=== PATIENT | female | born 1970 | race Caucasian/White ===

== ENCOUNTER 2021-04-11 11:30 | Inpatient (IN) | payer OTHER, SELFPAY ==
[2021-04-11] VITALS (7 sets, daily range): BP systolic 131–159; BP diastolic 68–82; PULSE 88–110; RESP 16–18; TEMP 36.6–38.5; O2SAT 94–98; BMI 39.4; BMI 39.8
[2021-04-11 12:14] LABS: Bacteria 0 SEEN /hpf (None Seen); Mucous, Urine 0 SEEN /hpf (<or=2+); Red Blood Cells-Urine 0 SEEN /hpf (0-5)
[2021-04-11 12:15] LABS: Color, Urine Yellow (Yellow); Glucose, Dipstick Normal (Normal); Ketone-Dipstick Negative (Negative); Leukocyte Esterase-Dipstick 500 /ul (Negative); Nitrite-Dipstick Negative (Negative); Occult Blood-Urine 250 /ul (Negative); Protein-Dipstick 100 mg/dl (Negative); Specific Gravity, Urine 1.015 (1.002-1.030); Urine Bilirubin Dipstick Negative (Negative); Urine Clarity Sl. Cloudy (Clear); Urine Urobilinogen Normal (Normal)
[2021-04-11 12:16] LABS: Absolute Lymphocyte Count 1.18 X10^3/uL (0.83-4.51); Absolute Neutrophil Count 14.3 X10^3/uL (2.0-7.7); Basophil# 0.06 X10^3/uL; Basophil% 0.4 % (0-1); Eosinophil# 0.03 X10^3/uL; Eosinophils% 0.2 % (0-5); Hematocrit 43.6 % (37-47); Hemoglobin 14.4 g/dL (12.0-15.0); Lymphocyte # 1.18 X10^3/ul (0.83-4.51); Lymphocyte % 7.1 % (19-41); Mean Corpuscular Hgb 28.6 pg (27.0-32.0); Mean Corpuscular Volume 86.7 fL (81-99); Mean Platelet Vol. 9.2 fl (6.2-12.0); Monocyte# 0.99 X10^3/uL; NRBC Flagged by Analyzer 0 % (0-5); Neutrophil # 14.25 X10^3/uL (2.7-7.7); Neutrophil % 85.7 % (47-70); Platelet Count 308 K/mm3 (150-450); RBC Distribution Width CV 13.4 % (11.6-14.6); RBC Distribution Width SD 41.6 fl (35.1-43.9); Red Blood Count 5.03 M/mm3 (4.2-5.4); White Blood Count 16.6 K/mm3 (4.4-11.0)
[2021-04-11 12:21] LABS: Squamous Epithelial Cells - UA 0-5 SEEN /hpf (5-10); White Blood Cells >100 SEEN /hpf (0-5)
--- NOTE | 2021-04-11 12:25 | CT_ITS ---
STUDY: CT ABDOMEN AND PELVIS WITHOUT CONTRAST REASON FOR EXAM: Female, 50 years old. left flank pain RADIATION DOSAGE (If Supplied By Facility): CTDIvol = ( 21.78 ) mGy, DLP = ( 1088.27 ) mGycm TECHNIQUE: Transaxial images were obtained from the dome of the diaphragm to the symphysis pubis without oral contrast, and without intravenous contrast. Sagittal and coronal images were reconstructed. Individualized dose optimization techniques were used for this CT. COMPARISON: None. FINDINGS: The visualized lung bases are unremarkable. The visualized portions of the heart are within normal limits. There is decreased attenuation of the liver consistent with steatosis. Normal gallbladder and extrahepatic biliary system. Normal spleen. Normal pancreas. Normal bilateral adrenal glands. Normal right kidney. 8 mm obstructing stone of the proximal left ureter with moderate hydronephrosis and perinephric edema. Normal visualized stomach. Normal small intestine. Normal colon. The appendix is visualized and appears normal. Normal abdominal aorta. Normal inferior vena cava. Normal retroperitoneum. Normal urinary bladder. Intrauterine device within the uterus. Normal abdominal wall. Normal osseous structures. CT/Abdomen/Pelvis without Cont IMPRESSION: 1. 8 mm obstructing stone of the proximal left ureter with moderate hydronephrosis and perinephric edema. 2. Fatty infiltration of the liver. 3. Intrauterine device. Electronically Signed: Marcos Pittman MD at 13:16 EDT Tel , Service support ,
--- NOTE | 2021-04-11 12:26 | ED.VIS.FEGU ---
HPI HPI - Female History of Present Illness Chief Complaint: Flank Pain Informant: patient Pain Onset: Yesterday Timing: Continuous Quality: Positive for Aching Current Severity: Mild Maximum Severity: Mild Bleeding Issue: Negative for Vaginal bleeding Associated Symptoms Associated Symptoms: Positive for Dysuria; Negative for Frequency, Urgency and Hematuria Narrative Narrative: 50-year-old female history of hypertension and asthma. Diagnosed with a recent UTI on February 26. Initially started on amoxicillin then changed to a different antibiotic and then was on Bactrim for 10 days and her symptoms resolved. She has had recurrent now flank pain and cloudy urine. States she has had fever and chills temperature as high as 1012. No history of kidney stones. She has had nausea. No diarrhea. Prior similar symptoms: Yes Recent Illness/Hospitalization: No PFSH PFSH Medical History Anxiety Asthma HTN (hypertension) Home Medications albuterol sulfate 90 mcg INHALATION Q4H PRN PRN 04/11/21 [History Last Taken Unknown] amlodipine 10 mg PO DAILY 04/11/21 [History Last Taken Unknown] hydrochlorothiazide 25 mg PO DAILY 04/11/21 [History Last Taken Unknown] montelukast 10 mg PO DAILY 04/11/21 [History Last Taken Unknown] Allergy/AdvReac Type Severity Reaction Status Date / Time acetaminophen [From Vicodin] AdvReac Vomiting Verified 04/11/21 11:31 hydrocodone [From Vicodin] AdvReac Vomiting Verified 04/11/21 11:31 Social History Smoking Status: Never smoker ROS ROS ED Review of Systems ROS Unobtainable: Denies due to encephalopathy Constitutional Constitutional ED: Reports chills and fever(s) Eyes Eyes: Denies change in vision ENT ENT ED: Denies ear pain or sore throat Cardiovascular Cardiovascular: Denies chest pain Respiratory/Chest Respiratory/Chest: Denies cough or dyspnea Gastrointestinal Gastrointestinal: Reports vomiting; Denies abdominal pain or diarrhea Genitourinary Genitourinary ED: Reports dysuria Musculoskeletal Musculoskeletal: Denies arthralgias or myalgias Integumentary Denies abscess or rash Neurologic Neurologic: Denies headache(s) Psychiatric Psychiatric: Denies depression Endocrine Endocrinology: Denies polyuria Hematologic/Lymphatic Hematologic/Lymphatic: Denies easy bruising Allergic/Immunologic Allergic/Immunologic ED: Denies urticaria EXAM Physical Exam Narrative Exam Narrative: Treatment no acute distress vital signs stable afebrile. Does not look septic or toxic. HEENT exam unremarkable. Lungs are clear. Heart regular rhythm. Abdomen soft nontender normal bowel sounds no peritoneal signs. Currently she has no reproducible CVA tenderness. Patient moving all 4 extremities. No edema. Neurologically she is awake and alert. Const Vital Signs: 04/11/21 11:31 04/11/21 12:01 Temperature 98.4 F Temperature Source Temporal Pulse Rate 104 H Respiratory Rate 16 Respiratory Effort Normal Non-Labored Respiratory Pattern Normal Blood Pressure 159/82 H Blood Pressure Mean 107 Pulse Ox 94 Oxygen Delivery Method Room Air Positive well nourished and well developed; Negative for obese, cachectic, contractures or unkempt General Appearance ED: well developed and NAD; Negative for unkempt, cachectic, contractures or pallor Nutritional Appearance: Negative for cachectic or obese HEENT Reports moist mucous membranes Negative for trauma or tenderness Eyes PERRL and EOMs intact bilaterally Neck no lymphadenopathy, supple and no JVD Thyroid: Negative for tender Chest Wall inspection of chest normal and palpation of chest normal Resp normal respiratory effort and clear to auscultation bilaterally Auscultation: Negative for rales, rhonchi or wheezes Cardio regular rate, regular rhythm, S1 normal heart sound, no murmurs and no JVD Rhythm: Negative for abnormal rhythm GI normal to inspection, nondistended, normoactive bowel sounds, non-tender, non-distended and no masses Auscultation: normoactive bowel sounds Palpation: Negative for tender, guarding or rigid no CVA tenderness Back/Spine no CVA tenderness Extremity normal to inspection and full ROM General Extremety ED: Negative for edema or tenderness General Extremity: Negative for edema Neuro oriented x3 Sensorium / Orientation: alert, oriented to person, oriented to place and oriented to time Motor Exam: strength 5/5 throughout Psych mental status grossly normal Appearance: Negative for unkempt Attitude: No agitated Mood & Affect: Negative for depressed or tearful Skin no rashes or lesions noted and no wounds General Skin Exam: Negative for jaundice or pallor MDM MDM MDM Narrative Medical decision making narrative: Middle-aged female with UTI symptoms possibly pyelonephritis rule out stone. Labs and a CT are being obtained. Repeat exam patient is doing well at 1:25 PM. She and I discussed her obstructing 8 mm proximal left ureteral stone and a possible UTI. She will be started on IV Rocephin I will speak to the hospitalist about admission and urology consultation tomorrow. 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 Lab Data Attestation: I reviewed the patient's lab results. Lab results narrative: CBC shows elevated white count of 16.6 thousand. Hemoglobin of 14. BMP potassium 3.4. Normal gap of 7 normal creatinine. Glucose 149. Urinalysis shows 250 occult blood negative nitrates greater than 100 WBCs no epithelial cells no blood no bacteria. Labs: Laboratory Results - last 24 hr 04/11/21 04/11/21 04/11/21 11:55 11:55 11:55 WBC 16.6 H RBC 5.03 Hgb 14.4 Hct 43.6 MCV 86.7 MCH 28.6 MCHC 33.0 RDW Std Deviation 41.6 RDW Coeff of Anahy 13.4 Plt Count 308 MPV 9.2 Immature Gran % (Auto) 0.600 Neut % (Auto) 85.7 H Lymph % (Auto) 7.1 L [place] % (Auto) 6.0 Eos % (Auto) 0.2 Baso % (Auto) 0.4 Absolute Neuts (auto) 14.3 H Absolute Lymphs (auto) 1.18 Nucleated RBC % 0 Sodium 137 Potassium 3.4 L Chloride 102 Carbon Dioxide 28.0 Anion Gap 7 BUN 12 Creatinine 0.75 Estim Creat Clear Calc 78.35 Est GFR (MDRD) Af Amer 105 Est GFR (MDRD) Non-Af 87 BUN/Creatinine Ratio 15.9 Glucose 149 H Calcium 9.1 Urine Color Yellow Urine Clarity Sl. Cloudy Urine pH 8.0 Ur Specific [place] 1.015 Urine Protein 100 H Urine Glucose (UA) Normal Urine Ketones Negative Urine Occult Blood 250 H Urine Nitrite Negative Urine Bilirubin Negative Urine Urobilinogen Normal Ur Leukocyte Esterase 500 H Urine RBC 0 SEEN Urine WBC >100 SEEN Ur Squamous Epith Cells 0-5 SEEN Urine Bacteria 0 SEEN Urine Mucus 0 SEEN Radiography Diagnostic Testing: Radiology Impression Abdomen/Pelvis CT 04/11/21 12:25 IMPRESSION: 1. 8 mm obstructing stone of the proximal left ureter with moderate hydronephrosis and perinephric edema. 2. Fatty infiltration of the liver. 3. Intrauterine device. Electronically Signed: Marcos Pittman MD at 13:16 EDT Tel , Service support , Discharge Plan Triage Chief Complaint: Flank Pain ED Provider: Jamar Adkins Dx/Rx/DC Orders Clinical Impression: Kidney stone on left side, Acute unilateral obstructive uropathy, UTI (urinary tract infection) Prescriptions: No Action amlodipine 10 mg tablet 10 mg PO DAILY RF: 0 montelukast 10 mg tablet 10 mg PO DAILY RF: 0 hydrochlorothiazide 25 mg tablet 25 mg PO DAILY RF: 0 albuterol sulfate 90 mcg/actuation HFA aerosol inhaler 90 mcg INHALATION Q4H PRN PRN (Reason: Wheezing) RF: 0 Primary Care Provider: Emily Pink Referrals: Emily Pink MD [Primary Care Provider] -
[2021-04-11 12:28] LABS: Anion Gap 7 (5-15); BUN 12 mg/dL (7-18); BUN/Creat Ratio 15.9 RATIO (10-20); Calcium,Total 9.1 mg/dL (8.5-10.1); Chloride 102 mmol/L (98-107); Creatinine, Serum 0.75 mg/dL (0.55-1.02); EST Glomerular Filtration Rate 87 mL/min (>60); Est Glom Filt Rate - Afr Amer 105 mL/min (>60); Estimated Creatinine Clearance 78.35 ml/min; Glucose 149 mg/dL (74-106); Potassium 3.4 mmol/L (3.5-5.1); Sodium Level 137 mmol/L (136-145)
[2021-04-11] MEDS: Ceftriaxone 1 GM/50 ML BAG IV (13:44)
--- NOTE | 2021-04-11 15:07 | HP.PCM.HOS_ITS ---
Documented by User: Esperanza Boyd NP, CORPORATE COUNSELOR-C 04/11/21 15:19 HPI - General General Date of Admission: 04/11/21 HPI Narrative BECKY LEBRON, is a 50 F who presents to the emergency room due to a fever, nausea, flank pain. Patient reports she has had urinary symptoms and intermittent treatment for UTI over the past 6 weeks. She states she has had urine cultures by her primary care provider however no abdominal imaging. She has been on Keflex, nitrofurantoin, Bactrim with recurrence of symptoms. She states last Monday she began having nausea. She reports her symptoms have worsened since that time and fever has been worse since Monday. She reports m ild left flank pain. She reports intermittent urinary symptoms over the past several weeks. She denies history of recurrent UTI, denies history of kidney stone. She is a past medical history of hypertension, seasonal allergies and asthma. [facility] Medical History (Updated 04/11/21 @ 14:50 by Lacey Schaefer) Anxiety Asthma HTN (hypertension) Kidney stones Home Medications albuterol sulfate 90 mcg INHALATION Q4H PRN PRN 04/11/21 [History Last Taken Unknown] amlodipine 10 mg PO DAILY 04/11/21 [History Last Taken Unknown] hydrochlorothiazide 25 mg PO DAILY 04/11/21 [History Last Taken Unknown] montelukast 10 mg PO DAILY 04/11/21 [History Last Taken Unknown] Allergy/AdvReac Type Severity Reaction Status Date / Time acetaminophen [From Vicodin] AdvReac Vomiting Verified 04/11/21 11:31 hydrocodone [From Vicodin] AdvReac Vomiting Verified 04/11/21 11:31 Family History (Updated 04/11/21 @ 15:13 by Esperanza Boyd CORPORATE COUNSELOR, CORPORATE COUNSELOR-C) Mother Diabetes Father CAD (coronary artery disease) COPD (chronic obstructive pulmonary disease) Surgical History no surgical history no surgical history Social History (Updated 04/11/21 @ 15:14 by Esperanza Boyd NP, CORPORATE COUNSELOR-C) household members: spouse Smoking Status: Never smoker alcohol intake: never substance use type: does not use ROS Constitutional Constitutional: Reports fever(s); Denies change in weight, chills, fatigue or weakness Cardiovascular Cardiovascular: Denies chest pain, edema, lightheadedness, palpitations or syncope Respiratory/Chest Respiratory/Chest: Denies cough, dyspnea, productive cough, shortness of breath at rest, shortness of breath with exertion or wheezing Gastrointestinal Gastrointestinal: Reports nausea; Denies abdominal pain, constipation, diarrhea or vomiting Genitourinary Genitourinary: Reports dysuria and urinary frequency; Denies burning urination, difficulty urinating, hematuria, urinary incontinence or urinary urgency Musculoskeletal Musculoskeletal: Reports other Details: Left flank pain ; Denies back pain, joint pain or muscle weakness Integumentary Integumentary: Denies erythema, lesions, rash or wounds Neurologic Neurologic: Denies abnormal speech, confusion, dizziness, focal weakness, numbness, paresthesias, seizure-like activity or syncope Psychiatric Psychiatric: Denies anxiety or depression Hematologic/Lymphatic Hematologic/Lymphatic: Denies anemia, easy bleeding or easy bruising Allergic/Immunologic Allergic/Immunologic: Denies hives or asthma Vital Signs Vital Signs Vital Signs: 04/11/21 11:31 04/11/21 12:01 04/11/21 14:06 Temperature 98.4 F 98 F Temperature Source Temporal Temporal Pulse Rate 104 H 90 Respiratory Rate 16 16 Respiratory Effort Normal Non-Labored Respiratory Depth Respiratory Pattern Normal Blood Pressure 159/82 H 154/78 H Blood Pressure Mean 107 103 Blood Pressure Source Blood Pressure Position Blood Pressure Location Pulse Ox 94 96 Oxygen Delivery Method Room Air Room Air 04/11/21 14:53 04/11/21 14:55 Temperature 99.6 F H Temperature Source Oral Pulse Rate 88 Respiratory Rate 16 Respiratory Effort Normal Respiratory Depth Normal Respiratory Pattern Normal Blood Pressure 158/68 H Blood Pressure Mean 98 Blood Pressure Source Monitor Blood Pressure Position Semi-Fowlers Blood Pressure Location Right Arm Pulse Ox 98 Oxygen Delivery Method Room Air Room Air Weight Weight: 232 lb Body Mass Index (BMI) 39.8 Physical Exam Const alert, oriented x3 and no apparent distress Orientation / Consciousness: awake, oriented to person, oriented to place and oriented to time HEENT normocephalic and moist oral mucous membranes Eyes PERRL, EOMs intact bilaterally and conjunctivae normal Neck no lymphadenopathy Resp normal respiratory effort and clear to auscultation bilaterally Cardio regular rate, regular rhythm and no murmurs Peripheral Pulses: pulses 2+ throughout GI normal to inspection, nondistended, normoactive bowel sounds, non-tender and non-distended Extremity normal to inspection Skin no rashes or lesions noted Lesions: no lesions Rashes: no rashes Trauma: no lacerations or abrasions Neuro CN's II-XII intact bilaterally, no focal motor deficits, no sensory deficits noted and deep tendon reflexes 2+ bilaterally Psych mental status grossly normal and affect normal Results Lab / Micro Data Result Diagrams: 04/11/21 11:55 04/11/21 11:55 Labs: Laboratory Results - last 24 hr 04/11/21 11:55: WBC 16.6 H, RBC 5.03, Hgb 14.4, Hct 43.6, MCV 86.7, MCH 28.6, MCHC 33.0, RDW Std Deviation 41.6, RDW Coeff of Anahy 13.4, Plt Count 308, MPV 9.2, Immature Gran % (Auto) 0.600, Neut % (Auto) 85.7 H, Lymph % (Auto) 7.1 L, [place] % (Auto) 6.0, Eos % (Auto) 0.2, Baso % (Auto) 0.4, Absolute Neuts (auto) 14.3 H, Absolute Lymphs (auto) 1.18, Nucleated RBC % 0 04/11/21 11:55: Sodium 137, Potassium 3.4 L, Chloride 102, Carbon Dioxide 28.0, Anion Gap 7, BUN 12, Creatinine 0.75, Estim Creat Clear Calc 78.35, Est GFR (MDRD) Af Amer 105, Est GFR (MDRD) Non-Af 87, BUN/Creatinine Ratio 15.9, Glucose 149 H, Calcium 9.1 04/11/21 11:55: Urine Color Yellow, Urine Clarity Sl. Cloudy, Urine pH 8.0, Ur Specific [place] 1.015, Urine Protein 100 H, Urine Glucose (UA) Normal, Urine Ketones Negative, Urine Occult Blood 250 H, Urine Nitrite Negative, Urine Bilirubin Negative, Urine Urobilinogen Normal, Ur Leukocyte Esterase 500 H, Urine RBC 0 SEEN, Urine WBC >100 SEEN, Ur Squamous Epith Cells 0-5 SEEN, Urine Bacteria 0 SEEN, Urine Mucus 0 SEEN Radiology Impression Abdomen/Pelvis CT 04/11/21 12:25 IMPRESSION: 1. 8 mm obstructing stone of the proximal left ureter with moderate hydronephrosis and perinephric edema. 2. Fatty infiltration of the liver. 3. Intrauterine device. Electronically Signed: Marcos Pittman MD at 13:16 EDT Tel , Service support , Assessment & Plan Assessment/Plan (1) UTI (urinary tract infection): (2) Kidney stone on left side: PLAN: 1. Acute complicated UTI-repeat urine culture. IV Rocephin. 2. Obstructing 8 mm proximal left ureteral stone with moderate hydronephrosis and perinephric edema-urology consult. IV fluids. As needed pain regimen. 3. Elevated glucose-check hemoglobin A1c. 4. Hypertension-stable, continue amlodipine, hydrochlorothiazide. 5. Chronic intermittent asthma-no exacerbation. DVT prophylaxis- Low risk, not indicated This patient was seen by Esperanza Boyd NP-C under the supervision of Dr. Tee Documented by User: Dr. Verito Tee MD 04/11/21 17:22 HPI - General General Date of Admission: 04/11/21 [facility] Medical History (Updated 04/11/21 @ 14:50 by Lacey Schaefer) Anxiety Asthma HTN (hypertension) Kidney stones Home Medications albuterol sulfate 90 mcg INHALATION Q4H PRN PRN 04/11/21 [History Last Taken Unknown] amlodipine 10 mg PO DAILY 04/11/21 [History Last Taken Unknown] hydrochlorothiazide 25 mg PO DAILY 04/11/21 [History Last Taken Unknown] montelukast 10 mg PO DAILY 04/11/21 [History Last Taken Unknown] Allergy/AdvReac Type Severity Reaction Status Date / Time acetaminophen [From Vicodin] AdvReac Vomiting Verified 04/11/21 11:31 hydrocodone [From Vicodin] AdvReac Vomiting Verified 04/11/21 11:31 Family History (Updated 04/11/21 @ 15:13 by Esperanza Boyd CORPORATE COUNSELOR, CORPORATE COUNSELOR-C) Mother Diabetes Father CAD (coronary artery disease) COPD (chronic obstructive pulmonary disease) Surgical History no surgical history Social History (Updated 04/11/21 @ 15:14 by Esperanza Oliver CORPORATE COUNSELOR, CORPORATE COUNSELOR-C) household members: spouse Smoking Status: Never smoker alcohol intake: never substance use type: does not use Results Lab / Micro Data Result Diagrams: 04/11/21 11:55 04/11/21 11:55 Charges/Coding Addendum Addendum: This patient was seen in conjunction with Esperanza Boyd. I have independently interviewed and examined the patient and reviewed pertinent historical, laboratory, and other data. I have reviewed her note and concur with her documentation 50 y/o female with PMHx of Hypertension, obesity who comes in urinary symptoms. She recently was on different antibiotics but had recurrence of symptoms. She was referred to a urologist in the [facility]. She denies fever or chills but admits to vomiting. CT abd/pelvis showed 8 mm obstructing stone of the proximal left ureter with moderate hydronephrosis and perinephric edema. Physical Exam: Gen: Comfortable, not pale, not jaundiced CVS:HS I +II, regular, no murmurs RESP: Diminished at lung bases GI: BS present and normal, soft, nontender, no palpable organs EXT:No edema ASSESSMENT: 1. Acute complicated UTI/Pyelonephritis(left) 2. Hypertension 3. Morbid obesity Plan: Continue IV ceftriaxone Follow-up on urine cultures Follow-up on urology consult - consulted from ED. Urology not available this weekend. ED contacted Dr. Espinoza, who will see patient tomorrow Visit Charges Inpatient E&M: [id number] [facility] Hosp L3
[2021-04-11] MEDS: amLODIPine 10 MG Tablet PO (15:50)
[2021-04-11] MEDS: hydroCHLOROthiazide 25 MG Tablet PO (15:50)
[2021-04-11] MEDS: 0.9% Normal Saline 1,000 ML 125 ML IV ×2 (15:50→23:41)
[2021-04-11 16:20] LABS: Hemoglobin A1c 5.9 % (3.8-5.6)
[2021-04-11] MEDS: Ondansetron 4 MG/2 ML Vial IV (17:28)
[2021-04-11] MEDS: Acetaminophen 325 MG Tablet 650 MG PO (20:28)
[2021-04-12] VITALS (12 sets, daily range): BP systolic 108–122; BP diastolic 50–73; PULSE 76–96; RESP 16–18; TEMP 36.4–37.7; O2SAT 92–98; BMI 39.6
[2021-04-12] MEDS: 0.9% Normal Saline 1,000 ML 125 ML IV (05:41)
[2021-04-12 07:17] LABS: Absolute Lymphocyte Count 1.92 X10^3/uL (0.83-4.51); Absolute Neutrophil Count 11.1 X10^3/uL (2.0-7.7); Basophil# 0.06 X10^3/uL; Basophil% 0.4 % (0-1); Eosinophil# 0.03 X10^3/uL; Eosinophils% 0.2 % (0-5); Hemoglobin 12.9 g/dL (12.0-15.0); Lymphocyte # 1.92 X10^3/ul (0.83-4.51); Lymphocyte % 13.3 % (19-41); Mean Corp Hgb Conc 33.1 g/dL (32-36); Mean Corpuscular Hgb 28.9 pg (27.0-32.0); Mean Corpuscular Volume 87.2 fL (81-99); Mean Platelet Vol. 9.8 fl (6.2-12.0); Monocyte# 1.22 X10^3/uL; Monocyte% 8.5 % (0-10); NRBC Flagged by Analyzer 0 % (0-5); Neutrophil # 11.11 X10^3/uL (2.7-7.7); Platelet Count 300 K/mm3 (150-450); RBC Distribution Width CV 13.7 % (11.6-14.6); RBC Distribution Width SD 43.6 fl (35.1-43.9); Red Blood Count 4.47 M/mm3 (4.2-5.4); White Blood Count 14.4 K/mm3 (4.4-11.0)
--- NOTE | 2021-04-12 07:30 | CON.PCM.UR_ITS ---
Assessment & Plan Assessment/Plan (1) Kidney stone on left side: HPI Consult Data Date of Consult: 04/12/21 HPI Narrative HPI Narrative: BECKY LEBRON, is a 50 F who presents To the emergency room with severe pain on the left side with a large stone causing obstruction she was admitted because of a elevated white blood count possible infectionPlan to take her surgery today for stent placement. We will have to plan for shockwave lithotripsy at a different date when the machine is available. [facility] Medical History (Updated 04/11/21 @ 14:50 by Lacey Schaefer) Anxiety Asthma HTN (hypertension) Kidney stones Home Medications albuterol sulfate 90 mcg INHALATION Q4H PRN PRN 04/11/21 [History Last Taken Unknown] amlodipine 10 mg PO DAILY 04/11/21 [History Last Taken Unknown] hydrochlorothiazide 25 mg PO DAILY 04/11/21 [History Last Taken Unknown] montelukast 10 mg PO DAILY 04/11/21 [History Last Taken Unknown] Allergy/AdvReac Type Severity Reaction Status Date / Time acetaminophen [From Vicodin] AdvReac Vomiting Verified 04/11/21 11:31 hydrocodone [From Vicodin] AdvReac Vomiting Verified 04/11/21 11:31 Family History (Updated 04/11/21 @ 15:13 by Esperanza Boyd LIFE SKILLS INSTRUCTOR, LIFE SKILLS INSTRUCTOR-C) Mother Diabetes Father CAD (coronary artery disease) COPD (chronic obstructive pulmonary disease) Surgical History no surgical history Social History (Updated 04/11/21 @ 15:14 by Esperanza Boyd NP, LIFE SKILLS INSTRUCTOR-C) household members: spouse Smoking Status: Never smoker alcohol intake: never substance use type: does not use ROS Constitutional Constitutional: Denies chills, fever(s) or malaise Eyes Eyes: Denies blurry vision or change in vision ENT HEENT: Reports none Cardiovascular Cardiovascular: Denies chest pain or palpitations Respiratory/Chest Respiratory/Chest: Denies cough or shortness of breath with exertion Gastrointestinal Gastrointestinal: Denies abdominal pain, constipation or diarrhea Musculoskeletal Musculoskeletal: Denies back pain, joint stiffness or joint swelling Integumentary Integumentary: Denies dry skin, jaundice, lesions or rash Neurologic Neurologic: Denies confusion, syncope or weakness Psychiatric Psychiatric: Reports none; Denies anxiety or depression Endocrine Endocrinology: Denies excessive sweating, fatigue or flushing Hematologic/Lymphatic Hematologic/Lymphatic: Denies anemia, easy bleeding or easy bruising Physical Exam Const alert and oriented x3 General Appearance: cooperative HEENT normocephalic, head/scalp atraumatic, EAC's normal and TM's normal bilaterally Eyes PERRL and EOMs intact bilaterally Pupil: sluggish Neck no lymphadenopathy, supple and no JVD General: trachea midline Lymph Lymphatic: no lymphadenopathy noted, lymphedema and lymphadenopathy Resp normal respiratory effort, normal air movement and clear to auscultation bila terally Cardio regular rate, regular rhythm and peripheral pulses 2+ throughout GI soft to palpation, non-tender and non-distended Extremity normal capillary refill and no clubbing, cyanosis or edema General Extremity: no tenderness to palpation of joints or extremities Skin no rashes or lesions noted General Skin Exam: turgor normal Lesions: no lesions Rashes: no rashes Neuro CN's II-XII intact bilaterally Speech: speech normal Motor Exam: strength 5/5 throughout; Negative for general weakness Psych thought process normal, cooperative and affect normal Appearance: appropriate Lab / Micro Data Result Diagrams: 04/12/21 05:45 04/11/21 11:55 Labs: Laboratory Results - last 24 hr 04/11/21 11:55: WBC 16.6 H, RBC 5.03, Hgb 14.4, Hct 43.6, MCV 86.7, MCH 28.6, MCHC 33.0, RDW Std Deviation 41.6, RDW Coeff of Anahy 13.4, Plt Count 308, MPV 9.2, Immature Gran % (Auto) 0.600, Neut % (Auto) 85.7 H, Lymph % (Auto) 7.1 L, [place] % (Auto) 6.0, Eos % (Auto) 0.2, Baso % (Auto) 0.4, Absolute Neuts (auto) 14.3 H, Absolute Lymphs (auto) 1.18, Nucleated RBC % 0 04/11/21 11:55: Sodium 137, Potassium 3.4 L, Chloride 102, Carbon Dioxide 28.0, Anion Gap 7, BUN 12, Creatinine 0.75, Estim Creat Clear Calc 78.35, Est GFR (MDRD) Af Amer 105, Est GFR (MDRD) Non-Af 87, BUN/Creatinine Ratio 15.9, Glucose 149 H, Calcium 9.1 04/11/21 11:55: Urine Color Yellow, Urine Clarity Sl. Cloudy, Urine pH 8.0, Ur Specific [place] 1.015, Urine Protein 100 H, Urine Glucose (UA) Normal, Urine Ketones Negative, Urine Occult Blood 250 H, Urine Nitrite Negative, Urine Bilirubin Negative, Urine Urobilinogen Normal, Ur Leukocyte Esterase 500 H, Urine RBC 0 SEEN, Urine WBC >100 SEEN, Ur Squamous Epith Cells 0-5 SEEN, Urine Bacteria 0 SEEN, Urine Mucus 0 SEEN 04/11/21 11:55: Hemoglobin A1c 5.9 H 04/12/21 05:45: WBC 14.4 H, RBC 4.47, Hgb 12.9, Hct 39.0, MCV 87.2, MCH 28.9, MCHC 33.1, RDW Std Deviation 43.6, RDW Coeff of [place]ahy 13.7, Plt Count 300, MPV 9.8, Immature Gran % (Auto) 0.600, Neut % (Auto) 77.0 H, Lymph % (Auto) 13.3 L, [place] % (Auto) 8.5, Eos % (Auto) 0.2, Baso % (Auto) 0.4, Absolute Neuts (auto) 11.1 H, Absolute Lymphs (auto) 1.92, Nucleated RBC % 0 Radiology Impression Abdomen/Pelvis CT 04/11/21 12:25 IMPRESSION: 1. 8 mm obstructing stone of the proximal left ureter with moderate hydronephrosis and perinephric edema. 2. Fatty infiltration of the liver. 3. Intrauterine device. Electronically Signed: Marcos Pittman MD at 13:16 EDT Tel , Service support ,
[2021-04-12 08:03] LABS: ALB/GLOB Ratio 0.6 RATIO (0.9-2.4); AST(SGOT) 12 U/L (15-37); Alanine Aminotransfer ALT/SGPT 22 U/L (13-56); Albumin, Serum 2.7 g/dL (3.2-5.0); Alkaline Phosphatase 100 U/L (45-117); Anion Gap 8 (5-15); BUN 7 mg/dL (7-18); Calcium,Total 8.5 mg/dL (8.5-10.1); Chloride 103 mmol/L (98-107); EST Glomerular Filtration Rate 94 mL/min (>60); Est Glom Filt Rate - Afr Amer 114 mL/min (>60); Estimated Creatinine Clearance 83.95 ml/min; Globulin 4.5 g/dL (2.2-4.2); Glucose 118 mg/dL (74-106); Potassium 2.9 mmol/L (3.5-5.1); Protein, Total 7.2 g/dL (6.4-8.2); Sodium Level 138 mmol/L (136-145)
[2021-04-12] MEDS: Potassium Chloride Oral Tablet 20 MEQ 60 MEQ PO (09:39)
[2021-04-12] MEDS: Ceftriaxone 1 GM/50 ML BAG IV (09:40)
--- NOTE | 2021-04-12 10:55 | CASEMGMT ---
RN CM Face to Face with patient for initial transition planning/care coordination assessment. RN CM introduced self and role at [facility]. Patient lying in bed, alert and oriented. Patient willing to participate in assessment and is able to answer all questions appropriately. Care providers, pharmacy, and demographics verified. Patient wishes to discharge home, denies need for home health at this time. Patient states she has no further needs or concerns at this time. CM to follow for discharge planning needs that may arise. PCP: Apryl Specialists: Stacey Marks brand representative Preferred Pharmacy: [facility] Insurance: [employer] Prescription Benefit: yes Living Will/HPOA: none LNOK: , daughters Living Arrangements: Patient lives with and 2 daughters(20y, 17y) in a 2 story home with bed and bath on first floor. Patient states she is independent at home. Transportation: self//daughters. DME/HHC: Patient denies DME or previous HHC. Disposition Plan: Patient to discharge home with family support and follow-up plans in place. Maude TREVIÑO, RN, CM
--- NOTE | 2021-04-12 11:42 | PN.HOSP_ITS ---
Documented by User: Esperanza Boyd NP, DISPLAY MECHANIC-C 04/12/21 11:47 Subjective Subjective Patient seen and examined. Reports nausea and fever improved. Denies significant flank pain. To undergo stent placement per urology. Objective Data Objective Data Vital Signs: Vital Signs Temp Pulse Resp BP Pulse Ox 98.5 F 89 18 120/52 L 95 04/12/21 11:10 04/12/21 11:10 04/12/21 11:10 04/12/21 11:10 04/12/21 11:10 Oxygen Delivery Method Room Air Weight: 231 lb 14.821 oz Body Mass Index (BMI) 39.6 Intake & Output: Intake and Output for Last 24 Hours 04/10/21 04/11/21 04/12/21 23:59 23:59 23:59 Intake Total 1381.25 / 1381.25 750 / 750 Output Total 800 / 1800 1350 / 1350 Balance 581.25 / -418.75 -600 / -600 Lab / Micro Data Result Diagrams: 04/12/21 05:45 04/12/21 05:45 Labs: Laboratory Results - last 24 hr 04/11/21 11:55: WBC 16.6 H, RBC 5.03, Hgb 14.4, Hct 43.6, MCV 86.7, MCH 28.6, MCHC 33.0, RDW Std Deviation 41.6, RDW Coeff of [place]ah[place] 13.4, Plt Count 308, MPV 9.2, Immature Gran % (Auto) 0.600, Neut % (Auto) 85.7 H, Lymph % (Auto) 7.1 L, [place] % (Auto) 6.0, Eos % (Auto) 0.2, Baso % (Auto) 0.4, Absolute Neuts (auto) 14.3 H, Absolute Lymphs (auto) 1.18, Nucleated RBC % 0 04/11/21 11:55: Sodium 137, Potassium 3.4 L, Chloride 102, Carbon Dioxide 28.0, Anion Gap 7, BUN 12, Creatinine 0.75, Estim Creat Clear Calc 78.35, Est GFR (MDRD) Af Amer 105, Est GFR (MDRD) Non-Af 87, BUN/Creatinine Ratio 15.9, Glucose 149 H, Calcium 9.1 04/11/21 11:55: Urine Color Yellow, Urine Clarity Sl. Cloudy, Urine pH 8.0, Ur Specific [place] 1.015, Urine Protein 100 H, Urine Glucose (UA) Normal, Urine Ketones Negative, Urine Occult Blood 250 H, Urine Nitrite Negative, Urine Bilirubin Negative, Urine Urobilinogen Normal, Ur Leukocyte Esterase 500 H, Urine RBC 0 SEEN, Urine WBC >100 SEEN, Ur Squamous Epith Cells 0-5 SEEN, Urine Bacteria 0 SEEN, Urine Mucus 0 SEEN 04/11/21 11:55: Hemoglobin A1c 5.9 H 04/12/21 05:45: WBC 14.4 H, RBC 4.47, Hgb 12.9, Hct 39.0, MCV 87.2, MCH 28.9, MCHC 33.1, RDW Std Deviation 43.6, RDW Coeff of [place]ahy 13.7, Plt Count 300, MPV 9.8, Immature Gran % (Auto) 0.600, Neut % (Auto) 77.0 H, Lymph % (Auto) 13.3 L, [place] % (Auto) 8.5, Eos % (Auto) 0.2, Baso % (Auto) 0.4, Absolute Neuts (auto) 11.1 H, Absolute Lymphs (auto) 1.92, Nucleated RBC % 0 04/12/21 05:45: Sodium 138, Potassium 2.9 L, Chloride 103, Carbon Dioxide 27.0, Anion Gap 8, BUN 7, Creatinine 0.70, Estim Creat Clear Calc 83.95, Est GFR (MDRD) Af Amer 114, Est GFR (MDRD) Non-Af 94, BUN/Creatinine Ratio 10.0, Glucose 118 H, Calcium 8.5, Total Bilirubin 0.80, AST 12 L, ALT 22, Alkaline Phosphatase 100, Total Protein 7.2, Albumin 2.7 L, Globulin 4.5 H, Albumin/Globulin Ratio 0.6 L Radiography Diagnostic Testing: Radiology Impression Abdomen/Pelvis CT 04/11/21 12:25 IMPRESSION: 1. 8 mm obstructing stone of the proximal left ureter with moderate hydronephrosis and perinephric edema. 2. Fatty infiltration of the liver. 3. Intrauterine device. Electronically Signed: Marcos Pittman MD at 13:16 EDT Tel , Service support , Physical Exam Const alert, oriented x3 and no apparent distress Orientation / Consciousness: awake, oriented to person, oriented to place and oriented to time HEENT normocephalic and moist oral mucous membranes Eyes PERRL, EOMs intact bilaterally and conjunctivae normal Neck no lymphadenopathy Resp normal respiratory effort and clear to auscultation bilaterally Cardio regular rate, regular rhythm and no murmurs Peripheral Pulses: pulses 2+ throughout GI normal to inspection, nondistended, normoactive bowel sounds, non-tender and non-distended Extremity normal to inspection Skin no rashes or lesions noted Lesions: no lesions Rashes: no rashes Trauma: no lacerations or abrasions Neuro CN's II-XII intact bilaterally, no focal motor deficits, no sensory deficits noted and deep tendon reflexes 2+ bilaterally Psych mental status grossly normal and affect normal Assessment & Plan Assessment/Plan (1) UTI (urinary tract infection): (2) Acute unilateral obstructive uropathy: PLAN: 1. Acute complicated UTI with pyelonephritis-repeat urine culture pending. Outpatient urine culture grew Klebsiella. IV Rocephin. 2. Obstructing 8 mm proximal left ureteral stone with moderate hydronephrosis and perinephric edema-urology consult. IV fluids. As needed pain regimen. To undergo stent placement with later scheduled lithotripsy. 3. Prediabetes-hemoglobin A1c 5.9%. Recommend dietary modifications. 4. Hypokalemia-replace per protocol, trend BMP. 5. Hypertension-stable, continue amlodipine, hydrochlorothiazide. 6. Chronic intermittent asthma-no exacerbation. DVT prophylaxis- Low risk, not indicated This patient was seen by THEO Broderick under the supervision of Dr. Traylor. Documented by User: Dr. Moy Traylor, 04/12/21 13:04 Subjective Subjective Feels better. No flank pain. Objective Data Lab / Micro Data Result Diagrams: 04/12/21 05:45 04/12/21 05:45 Physical Exam HEENT Head and Scalp: normocephalic Resp normal respiratory effort, no retractions, no use of accessory muscles and clear to auscultation bilaterally Cardio regular rate, regular rhythm, S1 normal heart sound and S2 normal heart sound GI normal to inspection, nondistended, normoactive bowel sounds, soft to palpation, non-tender and non-distended GI Narrative: no CVA tenderness Assessment & Plan Assessment/Plan (1) UTI (urinary tract infection): (2) Acute unilateral obstructive uropathy: (3) Kidney stone on left side: PLAN: Patient seen and examined independently. Data and vitals reviewed. I agree with the above note by the nurse practitioner. 1. Pyelonephritis, acute continue CTX. follow up cultures. 2. Obstructive left ureteral stone with moderate hydronephrosis consult for stent replacement and eventual lithotripsy. Charges/Coding Visit Charges Inpatient E&M: 41748 Subs Hosp L2
--- NOTE | 2021-04-12 11:45 | SUR.PREOP ---
pt states she has an IUD, says that she isn't and refuses the urine test
--- NOTE | 2021-04-12 12:04 | PCM.DC ---
Discharge Instructions Diet Discharge Diet: No restrictions Activity Discharge Activity: Return to Normal Activity and May Not Drive (while taking narcotic pain medications.) Dressing / Incision Call your doctor if you observe: Fever of 101 or Higher Follow Up Care Please Follow Up With: Juan M Espinoza MD When: Call [phone] to confirm surgery. Test Results: Test results from this visit will be discussed in further detail at your follow-up appointment, if applicable. Discharge Plan Admission Admit Date/Time: 04/11/21 14:44 Primary Reason for Your Visit: left kidney stone Attending Provider: Moy Traylor Primary Care Provider: Emily Pink Discharge Orders/Prescriptions Prescriptions: New ciprofloxacin HCl [Cipro] 500 mg tablet 500 mg PO BID Qty: 14 RF: 0 oxycodone-acetaminophen 5-325 mg tablet 1 tab PO Q6H PRN (Reason: pain) 7 Days Qty: 14 RF: 0 Continued amlodipine 10 mg tablet 10 mg PO DAILY RF: 0 montelukast 10 mg tablet 10 mg PO DAILY RF: 0 hydrochlorothiazide 25 mg tablet 25 mg PO DAILY RF: 0 albuterol sulfate 90 mcg/actuation HFA aerosol inhaler 90 mcg INHALATION Q4H PRN PRN (Reason: Wheezing) RF: 0 Referrals / Follow Up: Juan M Espinoza MD [STAFF PHYSICIAN] - Emily Pink MD [Primary Care Provider] - Disposition Discharge Orders: Discharge Patient (Routine); Ordered 04/12/21 Ordered By: Dr. Juan M Espinoza
[2021-04-12] MEDS: Lidocaine Jelly 2% 20 ML Syringe (URO-JET) 20 APPLIC (12:08)
--- NOTE | 2021-04-12 12:19 | PCM.OPRPT ---
Problems Associated Problem List Diagnoses (1) Kidney stone on left side: Report of Operation Date of Procedure: 04/12/21 Pre-Operative Diagnosis: Obstructing left ureteral calculus Post-Operative Diagnosis: Same Surgery/Procedure Performed:: Cystoscopy, left retrograde pyelogram, left stent placement Description of Surgical Findings:: Patient was taken back to the operating room after smooth induction of general anesthesia she was placed in dorsolithotomy position. The urethra and vaginal area were prepped and draped in usual sterile fashion, I went in the bladder and cannulated the left ureteral orifice with a wire, a 0.038 wire advanced a wire up into the kidney initially the wire would not go past the kidney stone we then performed a retrograde pyelogram and could see contrast go past the stone and then I was able to manipulate the wire past the stone and coiled up in the kidney I first placed a 6cm 24fr stent up in the kidney but I did not like the way the stent looked did look like it was all the way in position and it made mispositioned so I took the stent out advance a wire up into the kidney and then switched over to a 6 Sinhala by 26 cm stent and with this then I was able to get the stent in good position with the coil beyond the stone he could see the stone clearly. Once the stent was in good position I drain the bladder the stent coiled in the kidney and the bladder in good position and we were past the stone passing obstruction. She will go home today with antibiotics and pain medicine and she will be set up for shockwave lithotripsy next week. Surgeon: Olga Type of Anesthesia: General Drains: stent left side Admit VTE Documentation VTE Present on Admission: No VTE Mechan Device Prophylaxis: SCD's
[2021-04-12] MEDS: Acetaminophen 325 MG Tablet 650 MG PO (13:58)
--- NOTE | 2021-04-12 14:00 | DS.PCM_ITS ---
Providers Date of Admission: 04/11/21 Date of Discharge: 04/12/21 Primary Care Physician: Dr. Emily Pink MD Consultations 04/11/21 14:57 Consult: Urology Routine Consulting Provider: Juan M Espinoza Reason for Consult: Acute complicated UTI EMERGENT Consult: No MD Notified: Yes Date Notified: 04/11/21 Time Notified: 07:30 Method of Notification: Verbal Comments:: awaRe and seen pt Reason For Visit: OBSTRUCTIVE UROPATHY,KIDNEY STONE,UTI, LEUKOCYTES Diagnosis Discharge Diagnosis (1) UTI (urinary tract infection): Status: Acute Code(s): N39.0 - Urinary tract infection, site not specified (2) Acute unilateral obstructive uropathy: Status: Acute Code(s): N13.9 - Obstructive and reflux uropathy, unspecified (3) Kidney stone on left side: Status: Acute Code(s): N20.0 - Calculus of kidney Medications at Discharge Home Medications albuterol sulfate 90 mcg INHALATION Q4H PRN PRN 04/11/21 amlodipine 10 mg PO DAILY 04/11/21 hydrochlorothiazide 25 mg PO DAILY 04/11/21 montelukast 10 mg PO DAILY 04/11/21 ciprofloxacin HCl [Cipro] 500 mg PO BID #14 tab 04/12/21 oxycodone-acetaminophen 1 tab PO Q6H PRN 7 Days #14 tab 04/12/21 Hospital Course Operations None Procedures - (Cystoscopy, left retrograde pyelogram, left stent placement) Summary of Care Provided Minutes Spent on Discharge: 35 Hospital Course: Patient is a 50-year-old female admitted 04/11/2021 due to fever, nausea and flank pain. 1. Acute complicated UTI with pyelonephritis-repeat urine culture pending. Outpatient urine culture grew Klebsiella. IV Rocephin during admission, discharged on oral Cipro per urology. Follow-up with PCP and urology at discharge 2. Obstructing 8 mm proximal left ureteral stone with moderate hydronephrosis and perinephric edema-urology consulted during admission. Underwent cystoscopy, left retrograde pyelogram and left stent placement 04/12/2021 by urology with later scheduled lithotripsy. Discharge per urology on Cipro. Follow-up with urology at discharge. 3. Prediabetes-hemoglobin A1c 5.9%. Recommend dietary modifications. 4. Hypokalemia-replaced per protocol. 5. Hypertension-stable, continue amlodipine, hydrochlorothiazide. 6. Chronic intermittent asthma-no exacerbation. Physical Exam Const alert, oriented x3 and no apparent distress Orientation / Consciousness: awake, oriented to person, oriented to place and oriented to time HEENT normocephalic and moist oral mucous membranes Eyes PERRL, EOMs intact bilaterally and conjunctivae normal Neck no lymphadenopathy Resp normal respiratory effort and clear to auscultation bilaterally Cardio regular rate, regular rhythm and no murmurs Peripheral Pulses: pulses 2+ throughout GI normal to inspection, nondistended, normoactive bowel sounds, non-tender and non-distended Extremity normal to inspection Skin no rashes or lesions noted Lesions: no lesions Rashes: no rashes Trauma: no lacerations or abrasions Neuro CN's II-XII intact bilaterally, no focal motor deficits, no sensory deficits noted and deep tendon reflexes 2+ bilaterally Psych mental status grossly normal and affect normal Patient seen and examined prior to discharge. Physical assessment as noted above. Patient is stable for discharge with follow up recommendations as noted above. This patient was seen by THEO Broderick under the supervision of Dr. Traylor. 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 Meaningful Use Info Meaningful Use Diagnoses (Choose all that apply): None applicable Discharge Plan Admission Admit Date/Time: 04/11/21 14:44 Primary Reason for Your Visit: left kidney stone Attending Provider: Moy Traylor Primary Care Provider: Emily Pink Consulting Providers: Juan M Espinoza Discharge Orders/Prescriptions Prescriptions: New ciprofloxacin HCl [Cipro] 500 mg tablet 500 mg PO BID Qty: 14 RF: 0 oxycodone-acetaminophen 5-325 mg tablet 1 tab PO Q6H PRN (Reason: pain) 7 Days Qty: 14 RF: 0 Continued amlodipine 10 mg tablet 10 mg PO DAILY RF: 0 montelukast 10 mg tablet 10 mg PO DAILY RF: 0 hydrochlorothiazide 25 mg tablet 25 mg PO DAILY RF: 0 albuterol sulfate 90 mcg/actuation HFA aerosol inhaler 90 mcg INHALATION Q4H PRN PRN (Reason: Wheezing) RF: 0 Referrals / Follow Up: Juan M Espinoza MD [STAFF PHYSICIAN] - Emily Pink MD [Primary Care Provider] - Disposition Discharge Orders: Discharge Patient (Routine); Ordered 04/12/21 Ordered By: Dr. Juan M Espinoza
== END 2021-04-12 17:45 | disposition home or self-care (01) | DRG 661 ==
LOC: ED 12:47 → MS2 15:04
PROVIDERS: Nurse Practitioner Family; Urology; Admitting Provider Internal Medicine; Emergency Provider Emergency Medicine; PCP Internal Medicine
PROC: 0T778DZ Dilation of Left Ureter with Intraluminal Device, Via Natural or Artificial Opening Endoscopic (ICD-10-PCS; CPT 52332; principal; 2021-04-12 11:50)
DX: N10 Acute pyelonephritis (principal); N13.2 Hydronephrosis with renal and ureteral calculous obstruction; E66.01 Morbid (severe) obesity due to excess calories; Z68.39 Body mass index [BMI] 39.0-39.9, adult; E87.6 Hypokalemia; F41.9 Anxiety disorder, unspecified; I10 Essential (primary) hypertension; J44.9 Chronic obstructive pulmonary disease, unspecified; J45.20 Mild intermittent asthma, uncomplicated; R73.03 Prediabetes; Z87.442 Personal history of urinary calculi; Z79.899 Other long term (current) drug therapy
CPT/HCPCS: 36415; 74176; 76000; 80048; 80053; 81001; 83036; 85025; 87077; 87086; 87088; 87186; 99284; J7030; 90686; A4216; C1769; C2617; J2405

== ENCOUNTER 2021-04-21 12:18 | Day surgery (SDC) | payer OTHER, SELFPAY ==
[2021-04-21] VITALS (7 sets, daily range): BP systolic 115–149; BP diastolic 58–82; PULSE 90–106; RESP 16; TEMP 36.4–37.2; O2SAT 92–99; BMI 39.4
--- NOTE | 2021-04-21 12:15 | RAD_ITS ---
INDICATION: kidney stone EXAMINATION/TECHNIQUE: X-RAY - XR Abdomen 1 View COMPARISON: 04/11/2021. FINDINGS: Left double-J ureteral stent is visualized in position. IUCD visualized within the uterus BOWEL GAS PATTERN: Non-obstructive. No bowel or stomach distention. FREE AIR: Not assessed on a single supine view. ORGANOMEGALY: Not seen. CALCIFICATIONS: A 1.3 cm ovoid calcification is seen in the proximal left ureter. LOWER CHEST: No acute pathology. BONES AND SOFT TISSUES: No acute pathology. RAD/Abdomen Single View IMPRESSION: A 1.3 cm ovoid calcification is seen in the proximal left ureter. Non-obstructive bowel gas pattern. Electronically Signed: Sha Edwrads MD at 13:08 EDT Tel , Service support ,
[2021-04-21 13:00] LABS: Internal QC Validated? YES +Cl - CLEAR BKGD; Pregnancy, Urine Negative Negative
[2021-04-21] MEDS: Ketorolac 15 MG/ML Vial IV (13:11)
[2021-04-21] MEDS: Lactated Ringers 1,000 ML 100 ML IV (13:12)
--- NOTE | 2021-04-21 13:12 | PCM.DC ---
Discharge Instructions Diet Discharge Diet: No restrictions Activity Discharge Activity: Return to Normal Activity and May Not Drive (while taking narcotic pain medications.) Dressing / Incision Call your doctor if you observe: Fever of 101 or Higher Follow Up Care Please Follow Up With: Juan M Espinoza MD When: Call [phone] for an appointment Test Results: Test results from this visit will be discussed in further detail at your follow-up appointment, if applicable. Discharge Plan Admission Primary Reason for Your Visit: left ESWL and stent removal Attending Provider: Juan M Espinoza Primary Care Provider: Emily Pink Discharge Orders/Prescriptions Prescriptions: Continued amlodipine 10 mg tablet 10 mg PO DAILY RF: 0 montelukast 10 mg tablet 10 mg PO DAILY RF: 0 hydrochlorothiazide 25 mg tablet 25 mg PO DAILY RF: 0 albuterol sulfate 90 mcg/actuation HFA aerosol inhaler 90 mcg INHALATION Q4H PRN PRN (Reason: Wheezing) RF: 0 oxycodone-acetaminophen 5-325 mg tablet 1 tab PO Q6H PRN (Reason: pain) 7 Days Qty: 14 RF: 0 Referrals / Follow Up: Juan M Espinoza MD [STAFF PHYSICIAN] - Emily Pink MD [Primary Care Provider] - Disposition Disposition (needs filled in before D/C Order can be placed): Home, Self Care
--- NOTE | 2021-04-21 13:13 | OP.PCM_ITS ---
Report of Operation Date of Procedure: 04/21/21 Pre-Operative Diagnosis: left kidney stone and stent Post-Operative Diagnosis: Procedure: left ESWL and left retrograde pyeogram, left ureteroscopy laser stone and left stent Description of Surgical Findings:: Patient presents to the hospital for treatment of a kidney stone with shockwave lithotripsy. In the preoperative area and x-ray was done to confirm the location of the stone. The x-ray was reviewed and the stone location was reviewed. In the preoperative setting I spoke with the patient regarding the treatment of the stone how the treatment would be conducted and the expectations after surgery. The patient understands there is a risk of bleeding and infection. Also discussed the very rare risk of hematoma or damage to the kidney. We also discussed the risk that the shockwave machine will fail to break the stone adequately and that the patient may need other surgical procedures. We also discussed the possibility that the patient may need a stent after the procedure. After reviewing the procedure with the patient, the patient is signed the consent form all the patient's questions were addressed and was taken back to the operating room for treatment of a kidney stone. esthetic was reversed patient was extubated and taken back to the PACU in stable condition. Patient was taken back to the operating room, after smooth induction of general anesthesia the stone was seen in the proximal left ureter and the stent was seen going past the stone up into the kidney. We then proceeded with shockwave lithotripsy we started shocking the stone however after about 2000 shocks the stone had not changed at all so at that point the decision was made to proceed with ureteroscopy so we went into the bladder we grabbed the existing stent pulled out to the meatus advance a wire through the stent and then over the wire went in with the flexible ureteroscope I then got up to the stone I found incredibly impacted stone in the ureter had to use a 270 ?m laser fiber and started lasering the stone slowly and as I lasered the stone finally freed up from the ureter and went up into the kidney into little tiny pieces that we can see any more on fluoroscopy. After lasering the stone completely we did see a small false channel above where the stone had been probably where the prior stented then that because the stone was so impacted. I then backed down the ureter put a wire up performed a retrograde pyelogram but it did not look normal looks like there was deviation of the wire into the false channel so I went back up with the ureteroscope and then nature is in the kidney and then put the wire through the ureteroscope was in the kidney and then coiled in the upper pole the kidney work my way down the kidney and then over the wire place a stent it was a 6 Estonian by 26 cm stent coiled up in the kidney and coiled in the bladder normally given the fact that this was a incredibly impacted stone that required ureteroscopy and shockwave the clear out the stone was fairly impacted and there was a false channel to leave the stent in for about 4 weeks to make sure that the ureter heals completely. Patient's anesthetic is being reversed and she was taken back to PACU in good condition I will talk to the regarding the findings of surgery. Surgeon: phillip Type of Anesthesia: General Admit VTE Documentation VTE Present on Admission: No VTE Mechan Device Prophylaxis: SCD's
[2021-04-21] MEDS: Cefazolin 2 GM in 0.9% Normal Saline 100 ML IV (13:35)
--- NOTE | 2021-04-21 13:40 | HP.PCM_ITS ---
HPI - General HPI Narrative BECKY LEBRON, is a 50 F who presents for treatement of left kidney stone PFSH Medical History (Updated 04/19/21 @ 08:23 by Coty Luna) Asthma HTN (hypertension) Kidney stones Non-smoker Wears glasses Home Medications albuterol sulfate 90 mcg INHALATION Q4H PRN PRN 04/11/21 [History Last Taken Unknown] amlodipine 10 mg PO DAILY 04/11/21 [History Last Taken 04/21/21] hydrochlorothiazide 25 mg PO DAILY 04/11/21 [History Last Taken Unknown] montelukast 10 mg PO DAILY 04/11/21 [History Last Taken Unknown] oxycodone-acetaminophen 1 tab PO Q6H PRN 7 Days #14 tab 04/12/21 [Rx Last Taken Unknown] ciprofloxacin HCl [Cipro] 500 mg PO BID #6 tab 04/21/21 [Rx Last Taken Unknown] Allergy/AdvReac Type Severity Reaction Status Date / Time acetaminophen [From Vicodin] AdvReac Vomiting Verified 04/21/21 12:26 hydrocodone [From Vicodin] AdvReac Vomiting Verified 04/21/21 12:26 Family History (Updated 04/11/21 @ 15:13 by Esperanza Boyd INSURANCE FOLLOW UP SPECIALIST, INSURANCE FOLLOW UP SPECIALIST-C) Mother Diabetes Father CAD (coronary artery disease) COPD (chronic obstructive pulmonary disease) Surgical History (Updated 04/19/21 @ 08:23 by Coty Luna) Hx of cystoscopy Social History (Updated 04/11/21 @ 15:14 by Esperanza Boyd INSURANCE FOLLOW UP SPECIALIST, INSURANCE FOLLOW UP SPECIALIST-C) household members: spouse Smoking Status: Never smoker alcohol intake: never substance use type: does not use Vital Signs Vital Signs Vital Signs: 04/21/21 13:06 Temperature 99.0 F Temperature Source Temporal Pulse Rate 91 Respiratory Rate 16 Respiratory Pattern Normal Blood Pressure 149/82 H Blood Pressure Mean 104 Blood Pressure Source Monitor Blood Pressure Position Semi-Fowlers Blood Pressure Location Left Arm Pulse Ox 96 Oxygen Delivery Method Room Air Weight Weight: 104.3 kg Body Mass Index (BMI) 39.4 Physical Exam Const alert and oriented x3 General Appearance: cooperative HEENT normocephalic, head/scalp atraumatic, EAC's normal and TM's normal bilaterally Eyes PERRL and EOMs intact bilaterally Pupil: sluggish Neck no lymphadenopathy, supple and no JVD General: trachea midline Lymph Lymphatic: no lymphadenopathy noted, lymphedema and lymphadenopathy Resp normal respiratory effort, normal air movement and clear to auscultation bilate rally Cardio regular rate, regular rhythm and peripheral pulses 2+ throughout GI soft to palpation, non-tender and non-distended Extremity normal capillary refill and no clubbing, cyanosis or edema General Extremity: no tenderness to palpation of joints or extremities Skin no rashes or lesions noted General Skin Exam: turgor normal Lesions: no lesions Rashes: no rashes Neuro CN's II-XII intact bilaterally Speech: speech normal Motor Exam: strength 5/5 throughout; Negative for general weakness Psych thought process normal, cooperative and affect normal Appearance: appropriate Results Lab / Micro Data Labs: Laboratory Results - last 24 hr 04/21/21 12:50: Urine Test Negative Radiology Impression KUB X-Ray 04/21/21 12:15 IMPRESSION: A 1.3 cm ovoid calcification is seen in the proximal left ureter. Non-obstructive bowel gas pattern. Electronically Signed: Sha Edwards MD at 13:08 EDT Tel , Service support ,
[2021-04-21] MEDS: oxyCODONE 5 MG Tablet PO (16:23)
== END 2021-04-21 17:00 | disposition home or self-care (01) ==
LOC: SDC 12:29 → AC 12:42
PROVIDERS: Anesthesiology; PCP Internal Medicine; Referring Provider Urology; Visit Provider Urology
PROC: (CPT 50590; principal; 2021-04-21 14:00)
DX: N20.1 Calculus of ureter (principal); I10 Essential (primary) hypertension; J45.909 Unspecified asthma, uncomplicated; Z79.899 Other long term (current) drug therapy
CPT/HCPCS: 50590; 52332; 74018; 81025; J7120; C1769; C2617; J2405

== ENCOUNTER → 2021-05-18 14:37 | Outpatient (CLI) | payer OTHER, SELFPAY ==
--- NOTE | 2021-05-18 14:46 | RAD_ITS ---
STUDY: X-RAY - ABDOMEN/PELVIS REASON FOR EXAM: Female, 50 years old. KIDNEY STONES TECHNIQUE: KUB COMPARISON: 04/21/2021 FINDINGS: Normal visualized lung bases. There is an unremarkable bowel gas pattern. There is no demonstrated free abdominal air. The visualized liver, spleen and kidneys are grossly normal in size and morphology. Ureterovesical stent is noted on the left. There is a calculus within the lower pole collecting system of left kidney Normal soft tissue structures. Normal visualized osseous structures. RAD/Abdomen Single View IMPRESSION: Left nephrolithiasis. Status post ureterovesical stent placement Electronically Signed: Hitesh Cardona MD at 21:11 EDT , Service support ,
== END ==
PROVIDERS: PCP Internal Medicine; Referring Provider Urology; Visit Provider Urology
DX: N20.0 Calculus of kidney (principal)
CPT/HCPCS: 74018

== ENCOUNTER 2021-05-28 06:59 | Day surgery (SDC) | payer OTHER, SELFPAY ==
--- NOTE | 2021-05-28 07:01 | RAD_ITS ---
STUDY: X-RAY - ABDOMEN/PELVIS REASON FOR EXAM: Female, 50 years old. PRE-OP TECHNIQUE: Single AP view of the abdomen / pelvis. COMPARISON: Comparison is made with prior study 05/18/2021. FINDINGS: Normal visualized lung bases. There is a moderate amount of colonic fecal material. The previously seen left ureteral double-J stent catheter has been removed. Stable calculus in the lower pole calyx of the left kidney. IUD is seen within the pelvis. Normal visualized osseous structures. RAD/Abdomen Single View IMPRESSION: Status post removal of the left double-J stent catheter. Stable appearance of the calculus in the lower pole calyx of the left kidney. IUD seen within the pelvis. Electronically Signed: Oswaldo Page MD at 14:53 EST , Service support ,
[2021-05-28 07:27] VITALS: BP 129/63; PULSE 86; RESP 16; TEMP 36.2; O2SAT 100; BMI 40.4
[2021-05-28 07:32] LABS: Internal QC Validated? YES +Cl - CLEAR BKGD; Pregnancy, Urine Negative Negative
[2021-05-28] MEDS: Lactated Ringers 1,000 ML 15 ML IV (07:39)
[2021-05-28 07:58] LABS: Potassium 3.3 mmol/L (3.5-5.1)
[2021-05-28] MEDS: Cefazolin 2 GM in 0.9% Normal Saline 100 ML IV (09:09)
--- NOTE | 2021-05-28 09:43 | HP.PCM_ITS ---
HPI - General HPI Narrative BECKY LEBRON, is a 50 F who presents for treatment of her left kidney stone PFSH Medical History (Updated 04/19/21 @ 08:23 by Coty Luna) Asthma HTN (hypertension) Kidney stones Non-smoker Wears glasses Home Medications albuterol sulfate 90 mcg INHALATION Q4H PRN PRN 04/11/21 [History Last Taken U nknown] amlodipine 10 mg PO DAILY 04/11/21 [History Last Taken 05/28/21 06:45] hydrochlorothiazide 25 mg PO DAILY 04/11/21 [History Last Taken Unknown] montelukast 10 mg PO DAILY 04/11/21 [History Last Taken Unknown] Allergy/AdvReac Type Severity Reaction Status Date / Time acetaminophen [From Vicodin] AdvReac Vomiting Verified 05/28/21 07:24 hydrocodone [From Vicodin] AdvReac Vomiting Verified 05/28/21 07:24 Family History (Updated 04/11/21 @ 15:13 by Esperanza Boyd [employer]) Mother Diabetes Father CAD (coronary artery disease) COPD (chronic obstructive pulmonary disease) Surgical History (Updated 05/24/21 @ 13:08 by Smitha Rodriguez) Hx of cystoscopy Hx of cystostomy Social History (Updated 04/11/21 @ 15:14 by Esperanza Boyd [employer]) household members: spouse Smoking Status: Never smoker alcohol intake: never substance use type: does not use Vital Signs Vital Signs Vital Signs: 05/28/21 07:27 Temperature 97.1 F L Temperature Source Temporal Pulse Rate 86 Respiratory Rate 16 Respiratory Pattern Normal Blood Pressure 129/63 H Blood Pressure Mean 85 Blood Pressure Source Monitor Blood Pressure Position Semi-Fowlers Blood Pressure Location Left Arm Pulse Ox 100 Oxygen Delivery Method Room Air Weight Weight: 107 kg Body Mass Index (BMI) 40.4 Results Lab / Micro Data Result Diagrams: 05/28/21 07:37 Labs: Laboratory Results - last 24 hr 05/28/21 07:20: Urine Test Negative 05/28/21 07:37: Potassium 3.3 L, Magnesium 2.0
--- NOTE | 2021-05-28 09:44 | PCM.DC ---
Discharge Instructions Diet Discharge Diet: No restrictions Dressing / Incision Call your doctor if your incision/area has: Continuous Slow Oozing, Increased Pain/ Swelling, Increased Redness and Foul Smelling Discharge Call your doctor if you observe: Fever of 101 or Higher, Numbness or Tingling, Shortness of breath, Dizziness, Calf discomfort and Uncontrolled pain Follow Up Care Please Follow Up With: Juan M Espinoza MD Test Results: Test results from this visit will be discussed in further detail at your follow-up appointment, if applicable. Discharge Plan Admission Primary Reason for Your Visit: Left ESWL Attending Provider: Juan M Espinoza Primary Care Provider: Emily Pink Discharge Orders/Prescriptions Prescriptions: Continued amlodipine 10 mg tablet 10 mg PO DAILY RF: 0 montelukast 10 mg tablet 10 mg PO DAILY RF: 0 hydrochlorothiazide 25 mg tablet 25 mg PO DAILY RF: 0 albuterol sulfate 90 mcg/actuation HFA aerosol inhaler 90 mcg INHALATION Q4H PRN PRN (Reason: Wheezing) RF: 0 Referrals / Follow Up: Juan M Espinoza MD [STAFF PHYSICIAN] - Emily Pink MD [Primary Care Provider] - Disposition Disposition (needs filled in before D/C Order can be placed): Home, Self Care
--- NOTE | 2021-05-28 09:44 | PCM.OPRPT ---
Report of Operation Date of Procedure: 05/28/21 Pre-Operative Diagnosis: Left kidney stones Post-Operative Diagnosis: same Surgery/Procedure Performed:: Left extracorporeal shockwave lithotripsy Description of Surgical Findings:: Patient presents to the hospital for treatment of a kidney stone with shockwave lithotripsy. In the preoperative area and x-ray was done to confirm the location of the stone. The x-ray was reviewed and the stone location was reviewed. In the preoperative setting I spoke with the patient regarding the treatment of the stone how the treatment would be conducted and the expectations after surgery. The patient understands there is a risk of bleeding and infection. Also discussed the very rare risk of hematoma or damage to the kidney. We also discussed the risk that the shockwave machine will fail to break the stone adequately and that the patient may need other surgical procedures. We also discussed the possibility that the patient may need a stent after the procedure. After reviewing the procedure with the patient, the patient is signed the consent form all the patient's questions were addressed and was taken back to the operating room for treatment of a kidney stone. Patient was taken back to the operating room, patient was identified by the nursing staff, we identified the side of the treatment and the patient side of treatment had been marked by my initials. The patient underwent general anesthetic and was placed supine on the lithotripter table. We then used fluoroscopy to identify the stone on the left side. We then positioned the patient under the lithotripter and we used triangulation technique to identify the location of the stone and then we made sure that the stone was engaged in the F2 focal point of F2 Donier lithoprior machine. Once the patient was positioned appropriately and the stone was identified and placed in the F2 focal point of the lithotripter machine we then proceeded with shockwave lithotripsy. In the beginning the shockwave was delivered at a rate of 90 shocks per minute, we monitor the EKG for any ectopy. The power was slowly increased to 5 kV and subsequently at the 7 kV. We then proceeded with the treatment we move the therapy had around during the treatment to make sure the stone stayed in the F2 focal point during the entire treatment and after 3000 shockwaves were delivered to the stone under fluoroscopic guidance the treatment was completed. The patient was given instructions to call the office to make an a follow-up appointment with an xray to evaluate the success of the treatment, pateint understands that its possible the stones may need another procedure.At this point the patient's anesthetic was reversed patient was extubated and taken back to the PACU in stable condition. Type of Anesthesia: General Drains: none Admit VTE Documentation VTE Present on Admission: No VTE Mechan Device Prophylaxis: SCD's VTE Pharm Prophylaxis ordered?: No
[2021-05-28 09:56] VITALS: BP 129/63; BP 139/81; PULSE 100; RESP 16; TEMP 36.9; O2SAT 100
[2021-05-28 10:00] VITALS: BP 129/63; BP 135/70; PULSE 102; RESP 16; O2SAT 99
[2021-05-28 10:15] VITALS: BP 124/68; BP 129/63; PULSE 94; RESP 16; O2SAT 99
[2021-05-28 10:30] VITALS: BP 125/63; BP 129/63; PULSE 80; RESP 16; TEMP 36.2; O2SAT 99
[2021-05-28 11:08] VITALS: BP 129/63; BP 134/75; PULSE 72; RESP 16; TEMP 36.4; O2SAT 99
== END 2021-05-28 11:20 | disposition home or self-care (01) ==
LOC: SDC 07:01 → AC 07:02
PROVIDERS: Anesthesiology; PCP Internal Medicine; Referring Provider Urology; Visit Provider Urology
PROC: (CPT 50590; principal; 2021-05-28 08:50)
DX: N20.0 Calculus of kidney (principal); I10 Essential (primary) hypertension; J45.909 Unspecified asthma, uncomplicated; Z79.899 Other long term (current) drug therapy
CPT/HCPCS: 00873; 50590; 74018; 81025; 83735; 84132; J7120; J2405

== ENCOUNTER → 2021-06-21 14:03 | Outpatient (CLI) | payer OTHER, SELFPAY ==
--- NOTE | 2021-06-21 14:19 | RAD_ITS ---
EXAM: XR ABDOMEN, 1 VIEW CLINICAL INDICATION: Calculus of kidney left renal stone. TECHNIQUE: Frontal supine view of the abdomen/pelvis. This report was created using [employer] report generation technology. COMPARISON: KUB 11.12.[address] .. FINDINGS: LOWER THORAX: No acute pathology. GASTROINTESTINAL TRACT: Stool throughout the colon. Non-obstructive. No bowel or stomach distention. ORGANS: Stable appearance of the calculus in the lower pole calyx of the left kidney measuring 6.3mm. An intrauterine device is identified in the pelvis and this is likely within the uterus. No organomegaly. BONES/JOINTS: No acute pathology. SOFT TISSUES: No acute pathology. RAD/Abdomen Single View IMPRESSION: Stable appearance of the calculus in the lower pole calyx of the left kidney measuring 6.3mm. Electronically Signed: Joel Live MD at 15:03 EST , Service support ,
== END ==
PROVIDERS: PCP Internal Medicine; Referring Provider Urology; Visit Provider Urology
DX: N20.0 Calculus of kidney (principal)
CPT/HCPCS: 74018

== ENCOUNTER 2023-11-19 17:32 | Emergency (ER) | payer BC, SELFPAY ==
[2023-11-19 17:32] VITALS: BP 153/70; PULSE 104; RESP 18; TEMP 35.9; O2SAT 100; BMI 40.9
--- NOTE | 2023-11-19 17:48 | EDS_ITS ---
<Statement entered by Debbie Robledo MD - 11/19/23 21:47> I have personally performed a face to face assessment of the patient and have reviewed the JHOAN Note. Patient presents secondary to nausea and vomiting. She reports starting a new medication yesterday, Mounjaro. Approximate 4 hours after her first injection she developed nausea and vomiting. She has had approximately 20 episodes since that time. No fever or chills. No diarrhea. Patient lying in bed no acute distress. Nontoxic-appearing. Head and neck examination unremarkable. Heart is regular rate and rhythm. Lung sounds are clear. Abdomen is soft with no focal tenderness. CBC and chemistry studies are obtained. White count is slightly elevated at 12.0 with 84% neutrophils. This is likely demargination from vomiting. H&H is 16 and 47. This is slightly hemoconcentrated compared to her prior labs. Glucose is 169. LFTs and lipase are normal. After IV fluids, Zofran, and Toradol she is feeling improved. She is tolerating p.o. fluids at this time. She is discharged with a prescription for Zofran. HPI History of Present Illness Chief Complaint: Nausea/Vomiting Narrative Narrative: Patient presenting due to nausea and vomiting that started around 9 PM last night. She reports that she just started a new medication, Mounjaro that she is taking for weight loss. It is a once weekly medication, she started with 2.5 mg. She took this medication at 5 PM and began vomiting 4 hours later. She reports that she has vomited almost 20 times since then. She denies any fevers, chills, hematemesis, diarrhea, and previous abdominal surgery. She was that she has a slight epigastric discomfort but thinks it is from vomiting so much. [facility] Medical History Asthma HTN (hypertension) Kidney stones Non-smoker Wears glasses Home Medications albuterol sulfate 90 mcg/actuation aerosol inhaler 90 mcg inhalation Q4H PRN PRN Wheezing 04/11/21 [History Last Taken Unknown] amlodipine 10 mg tablet 10 mg PO DAILY 04/11/21 [History Last Taken 05/28/21 06:45] hydrochlorothiazide 25 mg tablet 25 mg PO DAILY 04/11/21 [History Last Taken Unknown] montelukast 10 mg tablet 10 mg PO DAILY 04/11/21 [History Last Taken Unknown] ondansetron 4 mg disintegrating tablet 4 mg PO Q8H PRN PRN Nausea #10 tabs 11/19/23 [Rx Last Taken Unknown] Allergy/AdvReac Type Severity Reaction Status Date / Time acetaminophen [From Vicodin] AdvReac Vomiting Verified 11/19/23 17:33 hydrocodone [From Vicodin] AdvReac Vomiting Verified 11/19/23 17:33 Family History Mother Diabetes Father CAD (coronary artery disease) COPD (chronic obstructive pulmonary disease) Surgical History Hx of cystoscopy Hx of cystostomy Social History household members: spouse Smoking Status: Never smoker alcohol intake: never substance use type: does not use ROS ROS ED Constitutional Constitutional ED: Denies chills or fever(s) Cardiovascular Cardiovascular: Denies chest pain Respiratory/Chest Respiratory/Chest: Denies cough or dyspnea Gastrointestinal Gastrointestinal: Reports abdominal pain, nausea and vomiting; Denies constipation, diarrhea or hematemesis Genitourinary Genitourinary ED: Denies dysuria, hematuria or urinary urgency Musculoskeletal Musculoskeletal: Denies arthralgias or myalgias Integumentary Denies rash Neurologic Neurologic: Denies weakness EXAM Physical Exam Const Vital Signs: 11/19/23 17:32 Temperature 96.6 F L Temperature Source Temporal Pulse Rate 104 H Respiratory Rate 18 Blood Pressure 153/70 H Blood Pressure Mean 97 Pulse Ox 100 Oxygen Delivery Method Room Air Positive well nourished, well developed and no apparent distress General Appearance ED: well developed HEENT Reports normocephalic, head/scalp atraumatic and dry mucous membranes Mouth ED: Yes dry mucous membranes Mouth: dry mucous membranes Eyes PERRL and EOMs intact bilaterally Neck full ROM and supple Chest Wall inspection of chest normal Resp normal respiratory effort and clear to auscultation bilaterally Cardio regular rate and regular rhythm GI soft to palpation, non-tender, non-distended and no masses Back/Spine normal ROM and normal to inspection Extremity normal to inspection and full ROM Neuro oriented x3, CN's II-XII intact bilaterally, moves all extremities, no focal motor deficits and no sensory deficits noted Sensorium / Orientation: awake and alert Psych mental status grossly normal and thought process normal Skin no rashes or lesions noted and no wounds MDM MDM MDM Narrative Medical decision making narrative: Patient presenting with nausea and vomiting that started about 4 hours after taking Mounjaro. She feels dehydrated and clinically appears dry. Her abdomen is soft and nontender, I do not feel abdominal imaging is indicated at this time. Labs will be obtained to rule out leukocytosis, anemia, electrolyte abnormality, CÉSAR, and pancreatitis. She will be given IV fluids, Zofran, and Toradol. On reexamination she reports improvement of her symptoms. She is tolerating p.o. fluids and would like to be discharged home. She will be given a prescription for Zofran and will be discharged home in stable condition. Return instructions given and she is comfortable with plan. Lab Data Attestation: I reviewed the patient's lab results. Lab results narrative: WBC 12, potassium 3.4 Labs: Laboratory Results - last 24 hr 11/19/23 18:00 WBC 12.0 H RBC 5.52 H Hgb 16.0 H Hct 47.0 MCV 85.1 MCH 29.0 MCHC 34.0 RDW Std Deviation 39.6 RDW Coeff of Anahy 12.7 Plt Count 244 MPV 9.4 Immature Gran % (Auto) 0.600 Neut % (Auto) 84.3 H Lymph % (Auto) 10.1 L [place] % (Auto) 4.1 Eos % (Auto) 0.4 Baso % (Auto) 0.5 Absolute Neuts (auto) 10.1 H Absolute Lymphs (auto) 1.21 Nucleated RBC % 0 Sodium 138 Potassium 3.4 L Chloride 104 Carbon Dioxide 22.0 Anion Gap 12 BUN 14 Creatinine 0.83 Estim Creat Clear Calc 95.30 Est GFR (MDRD) Af Amer 92 Est GFR (MDRD) Non-Af 76 BUN/Creatinine Ratio 16.8 Glucose 169 H Calcium 9.3 Total Bilirubin 0.80 AST 19 ALT 29 Alkaline Phosphatase 99 Total Protein 7.6 Albumin 3.7 Globulin 3.9 Albumin/Globulin Ratio 0.9 Lipase 31 Discharge Plan Triage Chief Complaint: Nausea/Vomiting ED Midlevel Provider: Jen Floyd ED Provider: Debbie Robledo Dx/Rx/DC Orders Clinical Impression: Nausea & vomiting Instructions: ED Vomiting (Adult) Prescriptions: New ondansetron 4 mg tablet,disintegrating 4 mg PO Q8H PRN PRN (Reason: Nausea) Qty: 10 0RF No Action amlodipine 10 mg tablet 10 mg PO DAILY Patient Comments: Take 1 tablet by mouth once daily. montelukast 10 mg tablet 10 mg PO DAILY hydrochlorothiazide 25 mg tablet 25 mg PO DAILY Patient Comments: Take 1 tablet by mouth once daily. albuterol sulfate 90 mcg/actuation HFA aerosol inhaler 90 mcg INHALATION Q4H PRN PRN (Reason: Wheezing) Patient Comments: Inhale 2 Puffs as instructed every 4 hours as needed. Primary Care Provider: Emily Pink Referrals: Emily Pink MD [Primary Care Provider] - 5-7 Days Activity Restrictions/Additional Instructions: Stay well-hydrated, return for any worsening of your symptoms. Follow-up with your PCP. Disposition Disposition: Home, Self Care Discharge Date/Time: 11/19/23 19:32
[2023-11-19] MEDS: Ondansetron 4 MG/2 ML Vial IV (17:57)
[2023-11-19] MEDS: Ketorolac 15 MG/ML Vial IV (17:57)
[2023-11-19] MEDS: 0.9% Normal Saline (1000mL) 1,000 ML 1000 ML IV (17:57)
[2023-11-19 18:06] LABS: Absolute Lymphocyte Count 1.21 X10^3/uL (0.83-4.51); Absolute Neutrophil Count 10.1 X10^3/uL (2.0-7.7); Basophil# 0.06 X10^3/uL; Basophil% 0.5 % (0-1); Eosinophil# 0.05 X10^3/uL; Eosinophils% 0.4 % (0-5); Lymphocyte # 1.21 X10^3/ul (0.83-4.51); Lymphocyte % 10.1 % (19-41); Mean Corpuscular Volume 85.1 fL (81-99); Mean Platelet Vol. 9.4 fl (6.2-12.0); Monocyte# 0.49 X10^3/uL; Monocyte% 4.1 % (0-10); NRBC Flagged by Analyzer 0 % (0-5); Neutrophil # 10.12 X10^3/uL (2.7-7.7); Neutrophil % 84.3 % (47-70); Platelet Count 244 K/mm3 (150-450); RBC Distribution Width CV 12.7 % (11.6-14.6); RBC Distribution Width SD 39.6 fl (35.1-43.9); Red Blood Count 5.52 M/mm3 (4.2-5.4)
[2023-11-19 18:40] LABS: ALB/GLOB Ratio 0.9 RATIO (0.9-2.4); AST(SGOT) 19 U/L (15-37); Alanine Aminotransfer ALT/SGPT 29 U/L (13-56); Albumin, Serum 3.7 g/dL (3.2-5.0); Alkaline Phosphatase 99 U/L (45-117); Anion Gap 12 (5-15); BUN 14 mg/dL (7-18); BUN/Creat Ratio 16.8 RATIO (10-20); Calcium,Total 9.3 mg/dL (8.5-10.1); Chloride 104 mmol/L (98-107); Creatinine, Serum 0.83 mg/dL (0.55-1.02); EST Glomerular Filtration Rate 76 mL/min (>60); Est Glom Filt Rate - Afr Amer 92 mL/min (>60); Globulin 3.9 g/dL (2.2-4.2); Glucose 169 mg/dL (74-106); Lipase 31 U/L (13-75); Potassium 3.4 mmol/L (3.5-5.1); Protein, Total 7.6 g/dL (6.4-8.2); Sodium Level 138 mmol/L (136-145)
== END 2023-11-19 19:32 | disposition home or self-care (01) ==
PROVIDERS: Physician Assistant; Emergency Provider Emergency Medicine; PCP Internal Medicine; Visit Provider Emergency Medicine
DX: R11.2 Nausea with vomiting, unspecified (principal); Z93.50 Unspecified cystostomy status; I10 Essential (primary) hypertension; Z79.899 Other long term (current) drug therapy
CPT/HCPCS: 80053; 83690; 85025; 96361; 96374; 96375; 99283; J2405